=== PATIENT | male | born 1950 | race Caucasian/White ===

== ENCOUNTER 2016-07-22 20:12 | Emergency (ER) | payer BC | END 2016-07-22 22:30 | disposition home or self-care (01) | LOC: ER1 20:12 | DX: S90.32XA Contusion of left foot, initial encounter (principal); E11.9 Type 2 diabetes mellitus without complications; I10 Essential (primary) hypertension; Z88.0 Allergy status to penicillin; W20.8XXA Other cause of strike by thrown, projected or falling object, initial encounter | CPT/HCPCS: 73630; 99283 ==

== ENCOUNTER 2016-08-27 17:28 | Emergency (ER) | payer OTHER | END 2016-08-27 21:42 | disposition home or self-care (01) | LOC: ER1 17:28 | DX: S16.1XXA Strain of muscle, fascia and tendon at neck level, initial encounter (principal); S20.212A Contusion of left front wall of thorax, initial encounter; M50.322 Other cervical disc degeneration at C5-C6 level; Z88.0 Allergy status to penicillin; V89.2XXA Person injured in unspecified motor-vehicle accident, traffic, initial encounter; Y93.89 Activity, other specified; Y92.410 Unspecified street and highway as the place of occurrence of the external cause; Z79.84 Long term (current) use of oral hypoglycemic drugs | CPT/HCPCS: 70450; 71250; 72125; 93005; 99284 ==

== ENCOUNTER → 2020-07-24 | Outpatient (CLI) | payer MEDICARE, BC, OTHER ==
[~2020-07-24] MED LIST: AMLODIPINE BESY10 MG PO; ATIVAN1 MG PO; BACTROBAN OINT22 GM EXT; BREO ELLIPTA 11 EACH INH; CARDIZEM CD120 MG PO; CARDURA4 MG PO; CARVEDILOL6.25 MG PO; CATAPRES 0.1MG0.1 MG PO; CLARITIN10 MG PO; CLONIDINE HCL0.3 MG PO; COZAAR50 MG PO; DEPO-TESTO200 MG/1 M IM; DEX4 GLUCOSE4 GM PO; DITROPAN XL5 MG PO; DOCUSATE SODIU100 MG PO; DOXYCYCLINE HY100 M2 PO; DOXYCYCLINE MO100 M1 PO; ECOTRIN81 MG PO; FLONASE 0.05% N16 GM; HUMALOG 10100 UNITS/ SC; HUMALOG MI100 UNIT/3 SC; HUMALOG100 UNIT/3 SQ; HYDRALAZINE HCL25 MG PO; HYDRALAZINE HCL50 MG PO; IMDUR ER TAB 3030 MG PO; LANTUS100 UNIT/1 SC; LASIX20 MG PO; LIPITOR TAB 2020 MG PO; LOPRESSOR 25 MG25 MG PO; LOPRESSOR50 MG PO; NEURONTIN600 MG PO; NITROSTAT0.4 MG SL; NORCO 5-325 TA1 EACH PO; NORVASC 5 MG TAB5 MG PO; OMEPRAZOLE40 MG PO; PLAVIX 75 MG TA75 MG PO; POLYETHYLENE GL17 GM PO; PROAIR HFA8.5 GM INH; TESTOSTERO200 MG/1 M IM; VITAMIN B-121000 MCG SC; VITAMIN D250000 UNIT PO
== END ==
LOC: EXRD 08:00
DX: I73.9 Peripheral vascular disease, unspecified (principal); I65.23 Occlusion and stenosis of bilateral carotid arteries
CPT/HCPCS: 93880; 93925; 93979

== ENCOUNTER 2020-11-08 17:22 | Inpatient (IN) | payer MEDICARE, BC, OTHER ==
[~2020-11-08] VITALS: Ht 175.3 cm; Wt 96.4 kg
[~2020-11-08 17:22] MED LIST changes: -CARVEDILOL6.25 MG PO; -CATAPRES 0.1MG0.1 MG PO; -CLONIDINE HCL0.3 MG PO; -DEX4 GLUCOSE4 GM PO; -DOCUSATE SODIU100 MG PO; -DOXYCYCLINE HY100 M2 PO; -HUMALOG 10100 UNITS/ SC; -HYDRALAZINE HCL25 MG PO; -HYDRALAZINE HCL50 MG PO; -POLYETHYLENE GL17 GM PO; -TESTOSTERO200 MG/1 M IM
[2020-11-08 18:41] LABS: HEMOGLOBIN 10.9 gm/dl (14.0-17.5); RED BLOOD COUNT 3.59 M/UL (4.20-5.50); WHITE BLOOD COUNT 4.7 K/UL (4.5-11.0)
[2020-11-08] MEDS ORDERED: HYDRALAZINE HCL25 MG PO (22:10)
[2020-11-08] MEDS ORDERED: CARVEDILOL6.25 MG PO (22:14)
[2020-11-08] MEDS ORDERED: TESTOSTERO200 MG/1 M IM (22:19)
[2020-11-08] MEDS ORDERED: CLONIDINE HCL0.3 MG PO (22:19)
[2020-11-09 06:03] LABS: HEMOGLOBIN 11.6 gm/dl (14.0-17.5); RED BLOOD COUNT 3.85 M/UL (4.20-5.50); WHITE BLOOD COUNT 4.3 K/UL (4.5-11.0)
[2020-11-10 02:54] LABS: HEMOGLOBIN 11.1 gm/dl (14.0-17.5); RED BLOOD COUNT 3.73 M/UL (4.20-5.50)
[2020-11-12 09:38] LABS: HEMOGLOBIN 11.4 gm/dl (14.0-17.5); RED BLOOD COUNT 3.79 M/UL (4.20-5.50)
[2020-11-13 09:08] LABS: HEMOGLOBIN 11.4 gm/dl (14.0-17.5); WHITE BLOOD COUNT 5.7 K/UL (4.5-11.0)
[2020-11-13 09:10] LABS: RED BLOOD COUNT 3.77 M/UL (4.20-5.50)
[2020-11-14 04:30] LABS: WHITE BLOOD COUNT 5.8 K/UL (4.5-11.0)
[2020-11-14 04:42] LABS: RED BLOOD COUNT 3.34 M/UL (4.20-5.50)
[2020-11-15 05:00] LABS: HEMOGLOBIN 10.1 gm/dl (14.0-17.5); RED BLOOD COUNT 3.34 M/UL (4.20-5.50); WHITE BLOOD COUNT 5.6 K/UL (4.5-11.0)
[2020-11-16 03:56] LABS: HEMOGLOBIN 9.5 gm/dl (14.0-17.5); RED BLOOD COUNT 3.14 M/UL (4.20-5.50); WHITE BLOOD COUNT 4.7 K/UL (4.5-11.0)
[2020-11-17] MEDS ORDERED: HYDRALAZINE HCL25 MG PO (18:17)
[2020-11-17] MEDS ORDERED: CATAPRES 0.1MG0.1 MG PO (18:17)
[2020-11-17] MEDS ORDERED: POLYETHYLENE GL17 GM PO (18:17)
[2020-11-17] MEDS ORDERED: DOCUSATE SODIU100 MG PO (18:17)
[2020-11-17] MEDS ORDERED: HUMALOG 10100 UNITS/ SC ×2 (18:17)
[2020-11-17] MEDS ORDERED: DOXYCYCLINE HY100 M2 PO (18:38)
[2020-11-17] MEDS ORDERED: DEX4 GLUCOSE4 GM PO (18:40)
--- NOTE | 2020-11-17 18:43 | NUR ---
PT BLOOD PRESSURE IS 159/92. DR. NEWTON VERBAL ORDER OF 5MG LOPRESSOR IVP ONCE AND RECHECK BLOOD PRESSURE IN 30 MINS. WILL CONTINUE TO MONITOR.
--- NOTE | 2020-11-17 20:44 | NUR ---
NOTIFIED DR NEWTON OF PT'S BLOOD PRESSURE. 169/64. RECIEVED ORDERS TO CANCEL PT'S DISCHARGE. WILL CONTINUE TO MONITOR.
[2020-11-18] MEDS ORDERED: HYDRALAZINE HCL50 MG PO (09:18)
[2020-11-18] MEDS ORDERED: DOXYCYCLINE HY100 M2 PO (09:24)
--- NOTE | 2020-11-18 11:54 | NUR ---
SPOKE WITH DR. NEWTON ABOUT THE PT'S UPDATED BLOOD PRESSURE. BLOOD PRESSURE CHECK AT 1147 SHOWS READING OF 139/52 WITH A HEART RATE OF 64. DR. NEWTON CLEARED THE PT FOR DISCHARGE.
== END 2020-11-18 14:31 | disposition home or self-care (01) | DRG 682 ==
LOC: ER1 17:22 → MED SURG 4 20:08 → CDU 20:08 → MED SURG 4 22:42
PROVIDERS: Internal Medicine; Internal Medicine Nephrology; Physician Assistant; ADMIT Internal Medicine
PROC: B24BZZ4 Ultrasonography of Heart with Aorta, Transesophageal (ICD-10-PCS; principal; 2020-11-09)
DX: N17.9 Acute kidney failure, unspecified (principal); I50.33 Acute on chronic diastolic (congestive) heart failure; I13.0 Hypertensive heart and chronic kidney disease with heart failure and stage 1 through stage 4 chronic kidney disease, or unspecified chronic kidney disease; E11.22 Type 2 diabetes mellitus with diabetic chronic kidney disease; I25.10 Atherosclerotic heart disease of native coronary artery without angina pectoris; Z20.822 Contact with and (suspected) exposure to COVID-19; E78.5 Hyperlipidemia, unspecified; N18.4 Chronic kidney disease, stage 4 (severe); M19.90 Unspecified osteoarthritis, unspecified site; D63.1 Anemia in chronic kidney disease; F41.9 Anxiety disorder, unspecified; G89.29 Other chronic pain; J40 Bronchitis, not specified as acute or chronic; T50.2X5A Adverse effect of carbonic-anhydrase inhibitors, benzothiadiazides and other diuretics, initial encounter; I08.3 Combined rheumatic disorders of mitral, aortic and tricuspid valves; D69.6 Thrombocytopenia, unspecified; J84.10 Pulmonary fibrosis, unspecified; I16.0 Hypertensive urgency; K59.00 Constipation, unspecified; R53.81 Other malaise; E11.40 Type 2 diabetes mellitus with diabetic neuropathy, unspecified; Z79.4 Long term (current) use of insulin; Z86.73 Personal history of transient ischemic attack (TIA), and cerebral infarction without residual deficits; Z98.61 Coronary angioplasty status; Z79.82 Long term (current) use of aspirin; Z79.01 Long term (current) use of anticoagulants; Z90.49 Acquired absence of other specified parts of digestive tract; Z83.3 Family history of diabetes mellitus; Z82.49 Family history of ischemic heart disease and other diseases of the circulatory system; Z88.0 Allergy status to penicillin; I25.2 Old myocardial infarction
CPT/HCPCS: ECHO; 36415; 71045; 71046; 80048; 80053; 80061; 80069; 81001; 82550; 82553; 82565; 82607; 82746; 82803; 82962; 83036; 83540; 83550; 83735; 83874; 83880; 84100; 84439; 84443; 84484; 85025; 85027; 85610; 85730; 87086; 93005; 93306; 94640; 94664; 94760; 96372; 96374; 97161; 99285; G0378; J0360; J1644; J1650; J1940; P9047; Q4081; Q5105; U0002

== ENCOUNTER → 2020-11-20 | Outpatient (CLI) | payer MEDICARE, BC, OTHER ==
[~2020-11-20] MED LIST changes: +CARVEDILOL6.25 MG PO; +CATAPRES 0.1MG0.1 MG PO; +CLONIDINE HCL0.3 MG PO; +DEX4 GLUCOSE4 GM PO; +DOCUSATE SODIU100 MG PO; +DOXYCYCLINE HY100 M2 PO; +HUMALOG 10100 UNITS/ SC; +HYDRALAZINE HCL25 MG PO; +HYDRALAZINE HCL50 MG PO; +POLYETHYLENE GL17 GM PO; +TESTOSTERO200 MG/1 M IM
[2020-11-20 16:40] LABS: HEMOGLOBIN 10.9 gm/dl (14.0-17.5); RED BLOOD COUNT 3.59 M/UL (4.20-5.50); WHITE BLOOD COUNT 4.6 K/UL (4.5-11.0)
== END ==
LOC: LAB 15:23
PROVIDERS: Internal Medicine
DX: N17.9 Acute kidney failure, unspecified (principal); N18.4 Chronic kidney disease, stage 4 (severe)
CPT/HCPCS: 36415; 80048; 85025

== ENCOUNTER → 2020-12-03 | Outpatient (CLI) | payer MEDICARE, BC | LOC: LAB 13:02 | PROVIDERS: Internal Medicine Nephrology | DX: N17.9 Acute kidney failure, unspecified (principal) | CPT/HCPCS: 36415; 80069 ==

== ENCOUNTER → 2021-01-03 | Outpatient (CLI) | payer MEDICARE, BC ==
[2021-01-03 16:24] LABS: RED BLOOD COUNT 3.38 M/UL (4.20-5.50); WHITE BLOOD COUNT 4.6 K/UL (4.5-11.0)
== END ==
LOC: LAB 15:34
PROVIDERS: Internal Medicine Nephrology
DX: D63.1 Anemia in chronic kidney disease (principal); N18.4 Chronic kidney disease, stage 4 (severe)
CPT/HCPCS: 36415; 80069; 82570; 82728; 83540; 83550; 84156; 85027

== ENCOUNTER 2021-01-04 16:42 | Observation (INO) | payer MEDICARE, BC ==
[~2021-01-04] VITALS: Ht 175.3 cm; Wt 96.2 kg
[2021-01-04 17:19] LABS: HEMOGLOBIN 10.1 gm/dl (14.0-17.5); RED BLOOD COUNT 3.38 M/UL (4.20-5.50)
--- NOTE | 2021-01-05 14:40 | NUR ---
PATIENT'S BP IS 201/71. NOTIFIED DR. MCWILLIAMS. NO NEW ORDERS AT THIS TIME. HE STATED HE WILL COME TO FLOOR SHORTLY TO ASSESS PATIENT.
== END 2021-01-06 15:57 | disposition home or self-care (01) ==
LOC: ER1 16:42 → M/S 20:24 → CDU 20:24 → M/S 01-05 00:20
PROVIDERS: Emergency Medicine; Internal Medicine Nephrology; ADMIT Internal Medicine
DX: I13.0 Hypertensive heart and chronic kidney disease with heart failure and stage 1 through stage 4 chronic kidney disease, or unspecified chronic kidney disease (principal); E11.22 Type 2 diabetes mellitus with diabetic chronic kidney disease; N18.4 Chronic kidney disease, stage 4 (severe); I50.33 Acute on chronic diastolic (congestive) heart failure; D63.1 Anemia in chronic kidney disease; I25.10 Atherosclerotic heart disease of native coronary artery without angina pectoris; M51.36 Other intervertebral disc degeneration, lumbar region; E78.5 Hyperlipidemia, unspecified; F41.9 Anxiety disorder, unspecified; Z86.73 Personal history of transient ischemic attack (TIA), and cerebral infarction without residual deficits; Z88.0 Allergy status to penicillin; Z79.82 Long term (current) use of aspirin; Z79.4 Long term (current) use of insulin; Z79.899 Other long term (current) drug therapy; Z20.822 Contact with and (suspected) exposure to COVID-19
CPT/HCPCS: 36415; 71045; 80048; 80053; 82550; 82553; 82728; 82962; 83540; 83550; 83735; 83874; 83880; 84100; 84484; 85025; 93005; 94640; 94664; 94760; 96372; 96376; 99285; G0378; J1644; J1940; U0002

== ENCOUNTER → 2021-01-28 | Outpatient (CLI) | payer MEDICARE, BC | LOC: HEART 5 08:45 | DX: I25.10 Atherosclerotic heart disease of native coronary artery without angina pectoris (principal); I50.9 Heart failure, unspecified; R06.00 Dyspnea, unspecified; Z95.5 Presence of coronary angioplasty implant and graft | CPT/HCPCS: 78452; A9502; J2785 ==

== ENCOUNTER → 2021-02-25 | Outpatient (CLI) | payer MEDICARE, BC | LOC: HEART 5 10:25 | DX: R06.00 Dyspnea, unspecified (principal) | CPT/HCPCS: 94060; 94729 ==

== ENCOUNTER → 2021-03-08 | Outpatient (CLI) | payer MEDICARE, BC ==
[2021-03-08 13:59] LABS: RED BLOOD COUNT 3.45 M/UL (4.20-5.50); WHITE BLOOD COUNT 4.3 K/UL (4.5-11.0)
== END ==
LOC: LAB 13:19
PROVIDERS: Internal Medicine Nephrology
DX: N18.4 Chronic kidney disease, stage 4 (severe) (principal); D63.1 Anemia in chronic kidney disease
CPT/HCPCS: 36415; 80053; 82570; 82728; 83540; 83550; 83970; 84100; 84156; 85027

== ENCOUNTER 2021-04-11 02:10 | Emergency (ER) | payer MEDICARE, BC ==
[2021-04-11 03:27] LABS: HEMOGLOBIN 10.4 gm/dl (14.0-17.5); RED BLOOD COUNT 3.56 M/UL (4.20-5.50); WHITE BLOOD COUNT 6.3 K/UL (4.5-11.0)
== END 2021-04-11 06:55 | disposition home or self-care (01) ==
LOC: ER1 02:10
PROVIDERS: Student in an Organized Health Care Education/Training Program
DX: R33.9 Retention of urine, unspecified (principal); I25.2 Old myocardial infarction; I13.0 Hypertensive heart and chronic kidney disease with heart failure and stage 1 through stage 4 chronic kidney disease, or unspecified chronic kidney disease; I50.9 Heart failure, unspecified; E11.22 Type 2 diabetes mellitus with diabetic chronic kidney disease; Z95.5 Presence of coronary angioplasty implant and graft; N18.9 Chronic kidney disease, unspecified
CPT/HCPCS: 51702; 80053; 81001; 85025; 96374; 99284; J2270

== ENCOUNTER 2021-05-07 21:44 | Inpatient (IN) | payer MEDICARE, BC ==
[~2021-05-07] VITALS: Ht 172.7 cm; Wt 83.9 kg
[~2021-05-07 21:44] MED LIST changes: -CLONIDINE HCL0.3 MG PO; -ECOTRIN81 MG PO; -LANTUS100 UNIT/1 SC
[2021-05-07 23:16] LABS: HEMOGLOBIN 10.1 gm/dl (14.0-17.5); RED BLOOD COUNT 3.49 M/UL (4.20-5.50); WHITE BLOOD COUNT 3.6 K/UL (4.5-11.0)
[2021-05-08 06:39] LABS: RED BLOOD COUNT 3.42 M/UL (4.20-5.50); WHITE BLOOD COUNT 3.3 K/UL (4.5-11.0)
[2021-05-08] MEDS ORDERED: BUMETANIDE1 MG PO (11:35)
[2021-05-08] MEDS ORDERED: DOXYCYCLINE MO100 MG PO (11:41)
[2021-05-08] MEDS ORDERED: PROMETHAZINE-D473 M1 PO (11:42)
[2021-05-08] MEDS ORDERED: AMLODIPINE BESYL5 MG PO (11:43)
[2021-05-08] MEDS ORDERED: DRISDOL1250 MCG PO (11:44)
[2021-05-08] MEDS ORDERED: SPIRONOLACTONE25 MG PO (11:44)
[2021-05-08] MEDS ORDERED: LORATADINE10 MG PO (11:44)
[2021-05-08] MEDS ORDERED: ZAROXOLYN/DIULO5 MG PO (11:45)
[2021-05-08] MEDS ORDERED: LANTUS100 UNIT/1 INJ (20:22)
[2021-05-08] MEDS ORDERED: CLONIDINE HCL0.3 MG PO (22:19)
[2021-05-08] MEDS ORDERED: ECOTRIN81 MG PO (22:38)
[2021-05-09 02:43] LABS: HEMOGLOBIN 10.4 gm/dl (14.0-17.5); RED BLOOD COUNT 3.69 M/UL (4.20-5.50)
[2021-05-09 02:44] LABS: WHITE BLOOD COUNT 1.7 K/UL (4.5-11.0)
[2021-05-10 02:53] LABS: HEMOGLOBIN 9.4 gm/dl (14.0-17.5); RED BLOOD COUNT 3.31 M/UL (4.20-5.50); WHITE BLOOD COUNT 3.7 K/UL (4.5-11.0)
[2021-05-10] MEDS ORDERED: LEVOFLOXACIN500 MG PO (14:19)
[2021-05-10] MEDS ORDERED: SODIUM BICARBO650 M1 PO (14:19)
[2021-05-10] MEDS ORDERED: AMLODIPINE BESYL5 MG PO (15:00)
[2021-05-10] MEDS ORDERED: DECADRON6 MG PO (15:02)
== END 2021-05-10 16:41 | disposition home health service (06) | DRG 177 ==
LOC: ER1 21:44 → CDU 05-08 01:15 → MED SURG 4 05-08 19:25
PROVIDERS: Internal Medicine; Internal Medicine Nephrology; Physician Assistant; ADMIT Internal Medicine
PROC: 8E0ZXY6 Isolation (ICD-10-PCS; principal; 2021-05-08)
PROC: 3E0333Z Introduction of Anti-inflammatory into Peripheral Vein, Percutaneous Approach (ICD-10-PCS; 2021-05-08)
DX: U07.1 COVID-19 (principal); J12.82 Pneumonia due to coronavirus disease 2019; J96.01 Acute respiratory failure with hypoxia; N18.4 Chronic kidney disease, stage 4 (severe); I13.0 Hypertensive heart and chronic kidney disease with heart failure and stage 1 through stage 4 chronic kidney disease, or unspecified chronic kidney disease; I50.32 Chronic diastolic (congestive) heart failure; N17.9 Acute kidney failure, unspecified; D61.818 Other pancytopenia; E87.2 Acidosis; N39.0 Urinary tract infection, site not specified; I25.10 Atherosclerotic heart disease of native coronary artery without angina pectoris; E11.22 Type 2 diabetes mellitus with diabetic chronic kidney disease; E11.40 Type 2 diabetes mellitus with diabetic neuropathy, unspecified; M51.36 Other intervertebral disc degeneration, lumbar region; F41.9 Anxiety disorder, unspecified; Z96.659 Presence of unspecified artificial knee joint; B95.2 Enterococcus as the cause of diseases classified elsewhere; D70.9 Neutropenia, unspecified; E86.0 Dehydration; Z86.73 Personal history of transient ischemic attack (TIA), and cerebral infarction without residual deficits; Z90.49 Acquired absence of other specified parts of digestive tract; Z98.890 Other specified postprocedural states; Z98.49 Cataract extraction status, unspecified eye; Z88.0 Allergy status to penicillin; Z82.49 Family history of ischemic heart disease and other diseases of the circulatory system; Z95.5 Presence of coronary angioplasty implant and graft; Z88.8 Allergy status to other drugs, medicaments and biological substances; Z79.4 Long term (current) use of insulin; Z79.82 Long term (current) use of aspirin; Z79.899 Other long term (current) drug therapy; Z79.52 Long term (current) use of systemic steroids
CPT/HCPCS: 36415; 70450; 71045; 80048; 80053; 81001; 82550; 82553; 82607; 82728; 82746; 82962; 83540; 83550; 83605; 83690; 83874; 84484; 85025; 86140; 87040; 87077; 87086; 87186; 93005; 96374; 96376; 99285; J0696; J1100; J1644; J2185; J2405; P9047

== ENCOUNTER 2021-05-20 08:49 | Emergency (ER) | payer MEDICARE, BC ==
[~2021-05-20 08:49] MED LIST changes: +AMLODIPINE BESYL5 MG PO; +BUMETANIDE1 MG PO; +CLONIDINE HCL0.3 MG PO; +DECADRON6 MG PO; +DOXYCYCLINE MO100 MG PO; +DRISDOL1250 MCG PO; +ECOTRIN81 MG PO; +LANTUS100 UNIT/1 INJ; +LEVOFLOXACIN500 MG PO; +LORATADINE10 MG PO; +PROMETHAZINE-D473 M1 PO; +SODIUM BICARBO650 M1 PO; +SPIRONOLACTONE25 MG PO; +ZAROXOLYN/DIULO5 MG PO
[2021-05-20 10:54] LABS: HEMOGLOBIN 10.9 gm/dl (14.0-17.5); RED BLOOD COUNT 3.84 M/UL (4.20-5.50); WHITE BLOOD COUNT 6.8 K/UL (4.5-11.0)
== END 2021-05-20 13:00 | disposition home or self-care (01) ==
LOC: ER1 08:49
PROVIDERS: Emergency Medicine
DX: U07.1 COVID-19 (principal); N18.4 Chronic kidney disease, stage 4 (severe); I11.0 Hypertensive heart disease with heart failure; I50.9 Heart failure, unspecified; E11.22 Type 2 diabetes mellitus with diabetic chronic kidney disease; Z79.4 Long term (current) use of insulin; Z88.0 Allergy status to penicillin
CPT/HCPCS: 71045; 80053; 81001; 83605; 83735; 84100; 85025; 87040; 87086; 96374; 99284; J2060

== ENCOUNTER 2021-05-21 09:08 | Emergency (ER) | payer MEDICARE, BC ==
[2021-05-21 10:07] LABS: HEMOGLOBIN 8.1 gm/dl (14.0-17.5); RED BLOOD COUNT 2.85 M/UL (4.20-5.50); WHITE BLOOD COUNT 9.9 K/UL (4.5-11.0)
[2021-05-21 17:43] LABS: RED BLOOD COUNT 2.42 M/UL (4.20-5.50); WHITE BLOOD COUNT 7.3 K/UL (4.5-11.0)
== END 2021-05-22 01:30 | disposition short-term general hospital (02) ==
LOC: ER1 09:08
PROVIDERS: Emergency Medicine
DX: I13.0 Hypertensive heart and chronic kidney disease with heart failure and stage 1 through stage 4 chronic kidney disease, or unspecified chronic kidney disease (principal); D64.9 Anemia, unspecified; R31.9 Hematuria, unspecified; N18.4 Chronic kidney disease, stage 4 (severe); E11.22 Type 2 diabetes mellitus with diabetic chronic kidney disease; I50.9 Heart failure, unspecified
CPT/HCPCS: 36430; 80048; 82009; 82800; 85025; 86850; 86900; 86901; 86920; 99284; P9016

== ENCOUNTER → 2021-06-04 | Outpatient (CLI) | payer MEDICARE, BC ==
[2021-06-04 16:25] LABS: HEMOGLOBIN 8.1 gm/dl (14.0-17.5); RED BLOOD COUNT 2.8 M/UL (4.20-5.50)
== END ==
LOC: LAB 15:53
PROVIDERS: Internal Medicine Nephrology
DX: N18.4 Chronic kidney disease, stage 4 (severe) (principal); I50.32 Chronic diastolic (congestive) heart failure
CPT/HCPCS: 36415; 80053; 82728; 83540; 83550; 85025

== ENCOUNTER → 2021-06-10 | Outpatient (CLI) | payer MEDICARE, BC ==
[~2021-06-10] VITALS: Ht 175.3 cm; Wt 83.0 kg
[2021-06-10 11:23] LABS: HEMOGLOBIN 7.7 gm/dl (14.0-17.5); RED BLOOD COUNT 2.63 M/UL (4.20-5.50); WHITE BLOOD COUNT 3.1 K/UL (4.5-11.0)
== END ==
LOC: OPSV 10:00
PROVIDERS: Internal Medicine Nephrology
DX: N18.9 Chronic kidney disease, unspecified (principal); D63.1 Anemia in chronic kidney disease
CPT/HCPCS: 36415; 80048; 82728; 83540; 83550; 85027; Q5106

== ENCOUNTER → 2021-06-13 | Outpatient (CLI) | payer MEDICARE, BC ==
[~2021-06-13] MED LIST changes: +CEFUROXIME500 MG PO
== END ==
LOC: LAB 11:28
PROVIDERS: Internal Medicine Nephrology
DX: N18.4 Chronic kidney disease, stage 4 (severe) (principal)
CPT/HCPCS: 36415; 80048

== ENCOUNTER 2021-06-16 19:51 | Emergency (ER) | payer MEDICARE, BC ==
[~2021-06-16 19:51] MED LIST changes: -CEFUROXIME500 MG PO
[2021-06-16 21:16] LABS: HEMOGLOBIN 7.6 gm/dl (14.0-17.5); RED BLOOD COUNT 2.58 M/UL (4.20-5.50); WHITE BLOOD COUNT 4.3 K/UL (4.5-11.0)
[2021-06-17] MEDS ORDERED: CEFUROXIME500 MG PO (01:37)
== END 2021-06-17 01:40 | disposition home or self-care (01) ==
LOC: ER1 19:51
PROVIDERS: Physician Assistant Medical
DX: N30.00 Acute cystitis without hematuria (principal); D64.9 Anemia, unspecified; N18.9 Chronic kidney disease, unspecified; E11.22 Type 2 diabetes mellitus with diabetic chronic kidney disease; Z90.49 Acquired absence of other specified parts of digestive tract; Z88.0 Allergy status to penicillin
CPT/HCPCS: 80053; 81001; 83605; 85025; 87086

== ENCOUNTER → 2021-06-24 | Outpatient (CLI) | payer MEDICARE, BC ==
[~2021-06-24] VITALS: Ht 175.3 cm; Wt 83.0 kg
[~2021-06-24] MED LIST changes: +CEFUROXIME500 MG PO
== END ==
LOC: OPSV 11:00
DX: N18.9 Chronic kidney disease, unspecified (principal); D63.1 Anemia in chronic kidney disease
CPT/HCPCS: 96372; Q5105

== ENCOUNTER → 2021-07-08 | Outpatient (CLI) | payer MEDICARE, BC ==
[2021-07-08 11:02] LABS: HEMOGLOBIN 7.9 gm/dl (14.0-17.5); RED BLOOD COUNT 2.75 M/UL (4.20-5.50); WHITE BLOOD COUNT 3.8 K/UL (4.5-11.0)
== END ==
LOC: LAB 10:06
PROVIDERS: Internal Medicine Nephrology
DX: N18.4 Chronic kidney disease, stage 4 (severe) (principal); I50.32 Chronic diastolic (congestive) heart failure
CPT/HCPCS: 36415; 80053; 82728; 83540; 83550; 85027

== ENCOUNTER → 2021-07-09 | Outpatient (CLI) | payer MEDICARE, BC ==
[~2021-07-09] VITALS: Ht 175.3 cm; Wt 83.0 kg
== END ==
LOC: OPSV 06-26 11:00
DX: N18.9 Chronic kidney disease, unspecified (principal)
CPT/HCPCS: 96372; Q5106

== ENCOUNTER → 2021-08-05 | Outpatient (CLI) | payer MEDICARE, BC ==
[2021-08-05 13:12] LABS: HEMOGLOBIN 8.3 gm/dl (14.0-17.5); RED BLOOD COUNT 2.97 M/UL (4.20-5.50); WHITE BLOOD COUNT 4.2 K/UL (4.5-11.0)
== END ==
LOC: LAB 12:31
PROVIDERS: Internal Medicine Nephrology
DX: N18.9 Chronic kidney disease, unspecified (principal); D63.1 Anemia in chronic kidney disease
CPT/HCPCS: 36415; 80048; 82728; 83540; 83550; 85027

== ENCOUNTER → 2021-08-06 | Outpatient (CLI) | payer MEDICARE, BC ==
[~2021-08-06] VITALS: Ht 175.3 cm; Wt 83.0 kg
== END ==
LOC: OPSV 10:32
DX: N18.9 Chronic kidney disease, unspecified (principal); D63.1 Anemia in chronic kidney disease
CPT/HCPCS: 96365; J1756

== ENCOUNTER → 2021-08-13 | Outpatient (CLI) | payer MEDICARE, BC ==
[~2021-08-13] VITALS: Ht 175.3 cm; Wt 83.0 kg
== END ==
LOC: OPSV 10:00
DX: N18.9 Chronic kidney disease, unspecified (principal); D63.1 Anemia in chronic kidney disease
CPT/HCPCS: 96365; J1756

== ENCOUNTER → 2021-08-21 | Outpatient (CLI) | payer MEDICARE, BC ==
[~2021-08-21] VITALS: Ht 175.3 cm; Wt 83.0 kg
== END ==
LOC: OPSV 08-20 11:00
DX: N18.9 Chronic kidney disease, unspecified (principal); D63.1 Anemia in chronic kidney disease
CPT/HCPCS: 96365; 96366; J1756

== ENCOUNTER → 2021-08-26 | Outpatient (CLI) | payer MEDICARE, BC ==
[2021-08-26 15:46] LABS: HEMOGLOBIN 8.8 gm/dl (14.0-17.5); RED BLOOD COUNT 3.15 M/UL (4.20-5.50)
== END ==
LOC: LAB 15:20
PROVIDERS: Internal Medicine Nephrology
DX: N18.9 Chronic kidney disease, unspecified (principal); D63.1 Anemia in chronic kidney disease
CPT/HCPCS: 36415; 85027

== ENCOUNTER → 2021-08-27 | Outpatient (CLI) | payer MEDICARE, BC ==
[~2021-08-27] VITALS: Ht 175.3 cm; Wt 83.0 kg
== END ==
LOC: OPSV 10:58
DX: N18.9 Chronic kidney disease, unspecified (principal); D63.1 Anemia in chronic kidney disease
CPT/HCPCS: 96372; J0885

== ENCOUNTER 2021-09-02 14:36 | Emergency (ER) | payer MEDICARE, BC ==
[2021-09-02 16:56] LABS: HEMOGLOBIN 7.8 gm/dl (14.0-17.5); RED BLOOD COUNT 2.8 M/UL (4.20-5.50); WHITE BLOOD COUNT 3.4 K/UL (4.5-11.0)
== END 2021-09-02 18:31 | disposition home or self-care (01) ==
LOC: ER1 14:36
PROVIDERS: Physician Assistant
DX: D64.9 Anemia, unspecified (principal); I11.0 Hypertensive heart disease with heart failure; I50.9 Heart failure, unspecified; E11.22 Type 2 diabetes mellitus with diabetic chronic kidney disease; K21.9 Gastro-esophageal reflux disease without esophagitis; Z95.5 Presence of coronary angioplasty implant and graft; Z88.0 Allergy status to penicillin
CPT/HCPCS: 80053; 82270; 85025; 86850; 86900; 86901; 99283

== ENCOUNTER → 2021-09-09 | Outpatient (CLI) | payer MEDICARE, BC ==
[2021-09-09 16:13] LABS: HEMOGLOBIN 8.1 gm/dl (14.0-17.5); RED BLOOD COUNT 2.87 M/UL (4.20-5.50)
== END ==
LOC: LAB 15:16
PROVIDERS: Internal Medicine Nephrology
DX: N18.9 Chronic kidney disease, unspecified (principal); D63.1 Anemia in chronic kidney disease
CPT/HCPCS: 36415; 80048; 82728; 83540; 83550; 85027

== ENCOUNTER → 2021-09-11 | Outpatient (CLI) | payer MEDICARE, BC | LOC: OPSV 11:00 | DX: N18.9 Chronic kidney disease, unspecified (principal); D63.1 Anemia in chronic kidney disease | CPT/HCPCS: 96372; J0885 ==

== ENCOUNTER → 2021-09-24 | Outpatient (CLI) | payer MEDICARE, BC ==
[2021-09-24 15:15] LABS: HEMOGLOBIN 7.5 gm/dl (14.0-17.5); RED BLOOD COUNT 2.64 M/UL (4.20-5.50); WHITE BLOOD COUNT 3.8 K/UL (4.5-11.0)
== END ==
LOC: LAB 14:21
PROVIDERS: Internal Medicine Nephrology
DX: N18.4 Chronic kidney disease, stage 4 (severe) (principal)
CPT/HCPCS: 36415; 80048; 85027

== ENCOUNTER → 2021-09-25 | Outpatient (CLI) | payer MEDICARE, BC ==
[~2021-09-25] VITALS: Ht 175.3 cm; Wt 83.0 kg
== END ==
LOC: OPSV 11:00
DX: N18.9 Chronic kidney disease, unspecified (principal); D63.1 Anemia in chronic kidney disease
CPT/HCPCS: 96372; Q4081

== ENCOUNTER → 2021-10-08 | Outpatient (CLI) | payer MEDICARE, BC ==
[2021-10-08 10:50] LABS: HEMOGLOBIN 8.2 gm/dl (14.0-17.5); WHITE BLOOD COUNT 4.4 K/UL (4.5-11.0)
== END ==
LOC: LAB 10:10
PROVIDERS: Internal Medicine Nephrology
DX: N18.9 Chronic kidney disease, unspecified (principal); D63.1 Anemia in chronic kidney disease
CPT/HCPCS: 36415; 80048; 82728; 83540; 83550; 85027

== ENCOUNTER → 2021-10-09 | Outpatient (CLI) | payer MEDICARE, BC ==
[~2021-10-09] VITALS: Ht 175.3 cm; Wt 83.0 kg
== END ==
LOC: OPSV 10:41
DX: N18.9 Chronic kidney disease, unspecified (principal); D63.1 Anemia in chronic kidney disease
CPT/HCPCS: 96372; Q4081

== ENCOUNTER → 2021-10-11 | Outpatient (CLI) | payer MEDICARE, BC | LOC: LBRF 15:21 | DX: N18.4 Chronic kidney disease, stage 4 (severe) (principal); D63.1 Anemia in chronic kidney disease | CPT/HCPCS: 82270 ==

== ENCOUNTER → 2021-10-22 | Outpatient (CLI) | payer MEDICARE, BC ==
[2021-10-22 13:31] LABS: HEMOGLOBIN 8.8 gm/dl (14.0-17.5); RED BLOOD COUNT 3.06 M/UL (4.20-5.50); WHITE BLOOD COUNT 4.8 K/UL (4.5-11.0)
== END ==
LOC: LAB 13:03
PROVIDERS: Internal Medicine Nephrology
DX: N17.9 Acute kidney failure, unspecified (principal); N18.9 Chronic kidney disease, unspecified; D63.1 Anemia in chronic kidney disease
CPT/HCPCS: 36415; 80048; 82728; 83540; 83550; 85027

== ENCOUNTER → 2021-10-24 | Outpatient (CLI) | payer MEDICARE, BC | LOC: OPSV 10-23 11:00 | DX: N18.4 Chronic kidney disease, stage 4 (severe) (principal); D63.1 Anemia in chronic kidney disease | CPT/HCPCS: 96365; 96366; J1756 ==

== ENCOUNTER → 2021-11-06 | Outpatient (CLI) | payer MEDICARE, BC ==
[2021-11-06 09:54] LABS: HEMOGLOBIN 8.5 gm/dl (14.0-17.5); RED BLOOD COUNT 2.88 M/UL (4.20-5.50); WHITE BLOOD COUNT 4.3 K/UL (4.5-11.0)
== END ==
LOC: LAB 09:34
PROVIDERS: Internal Medicine Nephrology
DX: N17.9 Acute kidney failure, unspecified (principal)
CPT/HCPCS: 36415; 80048; 83540; 85027

== ENCOUNTER → 2021-11-13 | Outpatient (CLI) | payer MEDICARE, BC ==
[~2021-11-13] VITALS: Ht 175.3 cm; Wt 83.0 kg
[2021-11-13 12:57] LABS: HEMOGLOBIN 8.1 gm/dl (14.0-17.5); RED BLOOD COUNT 2.73 M/UL (4.20-5.50); WHITE BLOOD COUNT 3.7 K/UL (4.5-11.0)
== END ==
LOC: OPSV 11:02
PROVIDERS: Internal Medicine Nephrology
DX: N18.4 Chronic kidney disease, stage 4 (severe) (principal); D63.1 Anemia in chronic kidney disease; I50.32 Chronic diastolic (congestive) heart failure
CPT/HCPCS: 80048; 82728; 83540; 83550; 85027; 96372; J0885

== ENCOUNTER → 2021-11-20 | Outpatient (CLI) | payer MEDICARE, BC ==
[2021-11-20 14:35] LABS: HEMOGLOBIN 8.2 gm/dl (14.0-17.5); RED BLOOD COUNT 2.73 M/UL (4.20-5.50); WHITE BLOOD COUNT 3.6 K/UL (4.5-11.0)
== END ==
LOC: LAB 13:52
PROVIDERS: Internal Medicine Nephrology
DX: N18.9 Chronic kidney disease, unspecified (principal); D63.1 Anemia in chronic kidney disease
CPT/HCPCS: 36415; 80048; 82728; 83540; 83550; 85027

== ENCOUNTER → 2021-11-21 | Outpatient (CLI) | payer MEDICARE, BC ==
[~2021-11-21] VITALS: Ht 175.3 cm; Wt 83.0 kg
== END ==
LOC: OPSV 11-07 11:00
DX: I50.32 Chronic diastolic (congestive) heart failure (principal)
CPT/HCPCS: 96365; J1756

== ENCOUNTER → 2021-11-28 | Outpatient (CLI) | payer MEDICARE, BC ==
[~2021-11-28] VITALS: Ht 175.3 cm; Wt 83.0 kg
== END ==
LOC: OPSV 11:42
DX: N18.9 Chronic kidney disease, unspecified (principal); D63.1 Anemia in chronic kidney disease
CPT/HCPCS: 96372; J0885

== ENCOUNTER → 2021-12-05 | Outpatient (CLI) | payer MEDICARE, BC ==
[2021-12-05 10:30] LABS: HEMOGLOBIN 8.2 gm/dl (14.0-17.5); RED BLOOD COUNT 2.87 M/UL (4.20-5.50)
== END ==
LOC: OPSV 09:46
PROVIDERS: Internal Medicine Nephrology
DX: I50.32 Chronic diastolic (congestive) heart failure (principal)
CPT/HCPCS: 36415; 82728; 83540; 83550; 85027

== ENCOUNTER → 2021-12-06 | Outpatient (CLI) | payer MEDICARE, BC ==
[~2021-12-06] VITALS: Ht 175.3 cm; Wt 83.0 kg
== END ==
LOC: OPSV 11:00
DX: N18.9 Chronic kidney disease, unspecified (principal); D63.1 Anemia in chronic kidney disease
CPT/HCPCS: 96365; J1756

== ENCOUNTER → 2021-12-12 | Outpatient (CLI) | payer MEDICARE, BC ==
[~2021-12-12] VITALS: Ht 175.3 cm; Wt 83.0 kg
== END ==
LOC: OPSV 11:00
DX: N18.4 Chronic kidney disease, stage 4 (severe) (principal); D63.1 Anemia in chronic kidney disease; I50.32 Chronic diastolic (congestive) heart failure
CPT/HCPCS: 96372; J0885

== ENCOUNTER → 2021-12-19 | Outpatient (CLI) | payer MEDICARE, BC ==
[2021-12-19 11:40] LABS: HEMOGLOBIN 9.4 gm/dl (14.0-17.5); RED BLOOD COUNT 3.23 M/UL (4.20-5.50); WHITE BLOOD COUNT 3.8 K/UL (4.5-11.0)
[2021-12-20 07:11] LABS: VITAMIN D, 25-HYDROXY 56.3 ng/mL (30.0-100.0)
== END ==
LOC: OPSV 10:43
DX: K31.819 Angiodysplasia of stomach and duodenum without bleeding (principal); D50.0 Iron deficiency anemia secondary to blood loss (chronic); I50.32 Chronic diastolic (congestive) heart failure; N18.5 Chronic kidney disease, stage 5; M16.11 Unilateral primary osteoarthritis, right hip
CPT/HCPCS: 73502; 80053; 82728; 83010; 83540; 83550; 85025; 85045; 85610; 96365; 96366; J1756

== ENCOUNTER → 2021-12-26 | Outpatient (CLI) | payer MEDICARE, BC ==
[~2021-12-26] VITALS: Ht 175.3 cm; Wt 83.0 kg
== END ==
LOC: OPSV 11:00
DX: N18.4 Chronic kidney disease, stage 4 (severe) (principal); D63.1 Anemia in chronic kidney disease; I50.32 Chronic diastolic (congestive) heart failure
CPT/HCPCS: 96372; J0885

== ENCOUNTER → 2022-01-08 | Outpatient (CLI) | payer MEDICARE, BC ==
[2022-01-08 15:58] LABS: RED BLOOD COUNT 4.2 M/UL (4.20-5.50); WHITE BLOOD COUNT 4.7 K/UL (4.5-11.0)
== END ==
LOC: LAB 15:30
PROVIDERS: Internal Medicine Nephrology
DX: N17.9 Acute kidney failure, unspecified (principal); N18.4 Chronic kidney disease, stage 4 (severe); D63.1 Anemia in chronic kidney disease
CPT/HCPCS: 36415; 80048; 82728; 83540; 83550; 85027

== ENCOUNTER → 2022-01-22 | Outpatient (CLI) | payer MEDICARE, BC ==
[2022-01-22 15:34] LABS: HEMOGLOBIN 10.1 gm/dl (14.0-17.5); RED BLOOD COUNT 3.57 M/UL (4.20-5.50); WHITE BLOOD COUNT 4.6 K/UL (4.5-11.0)
== END ==
LOC: LAB 14:55
PROVIDERS: Internal Medicine Nephrology
DX: N17.9 Acute kidney failure, unspecified (principal); N18.9 Chronic kidney disease, unspecified; D63.1 Anemia in chronic kidney disease
CPT/HCPCS: 36415; 80048; 82728; 83540; 83550; 85027

== ENCOUNTER → 2022-02-05 | Outpatient (CLI) | payer MEDICARE, BC ==
[2022-02-05 13:21] LABS: HEMOGLOBIN 9.3 gm/dl (14.0-17.5); RED BLOOD COUNT 3.31 M/UL (4.20-5.50); WHITE BLOOD COUNT 4.1 K/UL (4.5-11.0)
== END ==
LOC: LAB 12:13
PROVIDERS: Internal Medicine Nephrology
DX: N18.4 Chronic kidney disease, stage 4 (severe) (principal); D63.1 Anemia in chronic kidney disease
CPT/HCPCS: 36415; 80048; 82728; 83540; 83550; 83970; 84100; 85027

== ENCOUNTER → 2022-02-06 | Outpatient (CLI) | payer MEDICARE, BC ==
[~2022-02-06] VITALS: Ht 175.3 cm; Wt 83.0 kg
== END ==
LOC: OPSV 01-09 11:00
DX: I50.32 Chronic diastolic (congestive) heart failure (principal)
CPT/HCPCS: 96372; J0885